=== PATIENT | male | born 1940 | race Caucasian/White ===

== ENCOUNTER 2018-04-24 10:49 | Inpatient (IN) | payer MEDICARE, OTHER ==
[2018-04-24 11:19] LABS: ADD MAN DIFF? NO
[2018-04-24 11:24] LABS: WHITE BLOOD COUNT 12.3 10^3/ul (4.8-10.8)
[2018-04-24 11:24] LABS: BASOPHIL # 0.1 10^3/ul (0.0-0.1); BASOPHILS % 0.5 % (0.0-2.0); EOSINOPHILS # 0.2 10^3/ul (0.0-0.5); EOSINOPHILS % 1.4 % (0.0-7.0); HEMATOCRIT 43.6 % (42.0-52.0); LYMPHOCYTES # 1.1 10^3/ul (0.8-2.9); LYMPHOCYTES % 9.2 % (15.0-51.0); MEAN CORPUSCULAR HEMOGLOBIN 30.7 pg (29.0-33.0); MEAN CORPUSCULAR HGB CONC 34.4 g/dl (32.0-37.0); MEAN CORPUSCULAR VOLUME 89.3 fl (82.0-101.0); MEAN PLATELET VOLUME 8.4 fl (7.4-10.4); MONOCYTE # 1.3 10^3/ul (0.3-0.9); MONOCYTES % 10.7 % (0.0-11.0); NEUTROPHIL # 9.6 10^3/ul (1.6-7.5); NEUTROPHILS % 77.6 % (39.0-77.0); PLATELET COUNT 402 10^3/UL (140-415); RED BLOOD COUNT 4.88 10^6/ul (4.70-6.10); RED CELL DISTRIBUTION WIDTH 12.1 % (11.5-14.5)
[2018-04-24 11:44] LABS: INR 0.99; PROTIME 13.2 Sec (11.9-14.9)
[2018-04-24 11:45] LABS: PARTIAL THROMBOPLASTIN TIME 29.2 Sec (23.0-35.0)
[2018-04-24 11:48] LABS: ANION GAP 13 (5-13); BLOOD UREA NITROGEN 25 mg/dl (7-20); CALCIUM 10.1 mg/dl (8.4-10.2); CARBON DIOXIDE 26 mmol/L (21-31); CHLORIDE 96 mmol/L (97-110); CHOL/HDL RATIO 5.2 RATIO; CHOLESTEROL 152 mg/dl (100-200); CREATININE 0.74 mg/dl (0.61-1.24); GLUCOSE 277 mg/dl (70-220); HDL CHOLESTEROL 29 mg/dl (31-75); LDL CHOLESTEROL,CALCULATED 105 mg/dl; POTASSIUM 4.4 mmol/L (3.5-5.1); SODIUM 135 mmol/L (135-144); TRIGLYCERIDES 88 mg/dl (0-149)
[2018-04-24 11:59] LABS: TROPONIN-I < 0.012 ng/ml (0.000-0.120)
[2018-04-24] MEDS ORDERED: ASPIRIN 325 MG TAB PO (12:30)
[2018-04-24 12:31] LABS: HEMOGLOBIN A1C 8.1 % (0-5.9)
[2018-04-24] MEDS: ASPIRIN 300 MG SUPP PR (12:47)
[2018-04-24] MEDS ORDERED: ACETAMINOPHEN 325 MG TAB PO (14:30)
[2018-04-24] MEDS ORDERED: ONDANSETRON 4 MG INJ IV ×2 (14:30→16:30)
[2018-04-24 14:32] LABS: ADD UMIC YES; UR ASCORBIC ACID NEGATIVE (NEGATIVE); UR BACTERIA MANY /HPF (NONE SEEN); UR BILIRUBIN (Dip) NEGATIVE (NEGATIVE); UR BLOOD (Dip) 2+ mg/dL (NEGATIVE); UR CLARITY CLOUDY (CLEAR); UR COLOR AMBER (YELLOW); UR GLUCOSE (Dip) 3+ mg/dL (NEGATIVE); UR KETONES (Dip) TRACE mg/dL (NEGATIVE); UR LEUKOCYTE ESTERASE (Dip) 3+ Leu/ul (NEGATIVE); UR MUCUS MANY /HPF (NONE SEEN); UR NITRITE (Dip) POSITIVE (NEGATIVE); UR RBC 14 /HPF (0-5); UR SPECIFIC GRAVITY (Dip) 1.024 (1.003-1.030); UR TOTAL PROTEIN (Dip) 2+ mg/dl (NEGATIVE); UR UROBILINOGEN (Dip) 1+ mg/dL (NEGATIVE); UR WBC > 182 /HPF (0-5)
[2018-04-24 15:02] LABS: AMPHETAMINE/METHAMPHETAMINE Negative (NEGATIVE); BARBITURATES Negative (NEGATIVE); CANNABINOIDS Negative (NEGATIVE); COCAINE Negative (NEGATIVE); OPIATES Negative (NEGATIVE)
[2018-04-24 15:03] LABS: BENZODIAZEPINES Negative (NEGATIVE)
[2018-04-24] MEDS ORDERED: DEXTROSE 50% 50 ML SYRINGE IV ×2 (17:00)
[2018-04-24] MEDS ORDERED: GLUCOSE GEL 15 GRAM TUBE BUCCAL (17:00)
[2018-04-24] MEDS ORDERED: GLUCAGON 1 MG INJ IM (17:00)
[2018-04-24] MEDS ORDERED: GLUCOSE GEL 15 GRAM TUBE PO ×2 (17:00)
[2018-04-24] MEDS: CEFTRIAXONE 1 GM/50 ML (PMX) 50 ML IVPB (17:33)
[2018-04-24] MEDS: D5W-0.45 NACL + KCL 20 MEQ 1,000 ML IV (17:33)
[2018-04-24] MEDS ORDERED: INSULIN ASPART [NOVOLOG] 3 ML PEN SC (18:00)
[2018-04-24] MEDS: Insulin NOVOLOG SS MILD Algorithm (NPO/TPN/ENTERAL FEEDS) SC ×2 (18:40→23:45)
[2018-04-24] MEDS: FAMOTIDINE 20 MG INJ IV (21:38)
[2018-04-24] MEDS: morphine 4 MG/ML VIAL IV (23:27)
[2018-04-25] MEDS ORDERED: ACCU-CHEK XX (02:00)
[2018-04-25] MEDS: Insulin NOVOLOG SS MILD Algorithm (NPO/TPN/ENTERAL FEEDS) SC ×3 (05:13→17:50)
[2018-04-25 06:00] LABS: ADD MAN DIFF? NO
[2018-04-25 06:05] LABS: WHITE BLOOD COUNT 11.8 10^3/ul (4.8-10.8)
[2018-04-25 06:05] LABS: BASOPHIL # 0.1 10^3/ul (0.0-0.1); BASOPHILS % 0.5 % (0.0-2.0); EOSINOPHILS # 0.3 10^3/ul (0.0-0.5); EOSINOPHILS % 2.2 % (0.0-7.0); HEMATOCRIT 39.8 % (42.0-52.0); HEMOGLOBIN 13.4 g/dl (14.0-18.0); LYMPHOCYTES # 0.9 10^3/ul (0.8-2.9); LYMPHOCYTES % 7.9 % (15.0-51.0); MEAN CORPUSCULAR HEMOGLOBIN 30.7 pg (29.0-33.0); MEAN CORPUSCULAR HGB CONC 33.7 g/dl (32.0-37.0); MEAN CORPUSCULAR VOLUME 91.1 fl (82.0-101.0); MEAN PLATELET VOLUME 8.7 fl (7.4-10.4); MONOCYTE # 1.4 10^3/ul (0.3-0.9); MONOCYTES % 11.7 % (0.0-11.0); NEUTROPHIL # 9.1 10^3/ul (1.6-7.5); PLATELET COUNT 377 10^3/UL (140-415); RED BLOOD COUNT 4.37 10^6/ul (4.70-6.10)
[2018-04-25 06:17] LABS: HEMOGLOBIN A1C 8.1 % (0-5.9)
[2018-04-25 06:26] LABS: ALANINE AMINOTRANSFERASE 23 IU/L (13-69); ALBUMIN 3.5 g/dl (3.3-4.9); ALBUMIN/GLOBULIN RATIO 0.97; ALKALINE PHOSPHATASE 63 IU/L (42-121); ANION GAP 15 (5-13); ASPARTATE AMINO TRANSFERASE 22 IU/L (15-46); BILIRUBIN,INDIRECT 0.5 mg/dl (0-1.1); BILIRUBIN,TOTAL 0.5 mg/dl (0.2-1.3); BLOOD UREA NITROGEN 20 mg/dl (7-20); CALCIUM 9.3 mg/dl (8.4-10.2); CARBON DIOXIDE 24 mmol/L (21-31); CHLORIDE 98 mmol/L (97-110); CREATININE 0.68 mg/dl (0.61-1.24); GLUCOSE 220 mg/dl (70-220); HDL CHOLESTEROL 25 mg/dl (31-75); MAGNESIUM 1.9 mg/dl (1.7-2.5); POTASSIUM 4.4 mmol/L (3.5-5.1); SODIUM 137 mmol/L (135-144); TOTAL PROTEIN 7.1 g/dl (6.1-8.1); TRIGLYCERIDES 91 mg/dl (0-149)
[2018-04-25 06:28] LABS: CHOL/HDL RATIO 5.3 RATIO; CHOLESTEROL 134 mg/dl (100-200); LDL CHOLESTEROL,CALCULATED 91 mg/dl
[2018-04-25] MEDS: D5W-0.45 NACL + KCL 20 MEQ 1,000 ML IV ×2 (06:50→20:40)
[2018-04-25] MEDS: morphine 4 MG/ML VIAL IV (06:59)
[2018-04-25] MEDS: FAMOTIDINE 20 MG INJ IV ×2 (08:30→20:44)
[2018-04-25] MEDS: CARBIDOPA/LEVODOPA (25/100) TAB PO ×3 (09:26→20:44)
[2018-04-25] MEDS: CEFTRIAXONE 1 GM/50 ML (PMX) 50 ML IVPB (16:38)
[2018-04-25] MEDS: ATORVASTATIN 40 MG TAB PO (20:44)
[2018-04-25] MEDS: INSULIN ASPART [NOVOLOG] 3 ML PEN SC (20:59)
[2018-04-26] MEDS: ACCU-CHEK XX (02:00)
[2018-04-26] MEDS: metFORMIN 500 MG TAB PO ×2 (07:47→17:22)
[2018-04-26] MEDS: INSULIN ASPART [NOVOLOG] 3 ML PEN SC ×5 (08:00→21:27)
[2018-04-26] MEDS: CARBIDOPA/LEVODOPA (25/100) TAB PO ×3 (08:00→21:09)
[2018-04-26] MEDS: morphine 4 MG/ML VIAL IV ×2 (08:00→16:19)
[2018-04-26] MEDS: FAMOTIDINE 20 MG INJ IV (08:00)
[2018-04-26] MEDS: D5W-0.45 NACL + KCL 20 MEQ 1,000 ML IV (11:03)
[2018-04-26] MEDS: CEFTRIAXONE 1 GM/50 ML (PMX) 50 ML IVPB (16:09)
[2018-04-26] MEDS: ATORVASTATIN 40 MG TAB PO (21:09)
[2018-04-26] MEDS: FAMOTIDINE 20 MG TAB PO (21:09)
[2018-04-26] MEDS: INSULIN GLARGINE [LANTus] (100 UNITS/ML) SYG SC (21:23)
[2018-04-27] MEDS: D5W-0.45 NACL + KCL 20 MEQ 1,000 ML IV ×2 (01:21→15:56)
[2018-04-27] MEDS: ACCU-CHEK XX (02:00)
[2018-04-27] MEDS: morphine 4 MG/ML VIAL IV ×3 (02:25→11:56)
[2018-04-27] MEDS: metFORMIN 500 MG TAB PO ×2 (07:53→17:30)
[2018-04-27] MEDS: FAMOTIDINE 20 MG TAB PO ×2 (07:53→20:05)
[2018-04-27] MEDS: CARBIDOPA/LEVODOPA (25/100) TAB PO ×3 (07:53→20:05)
[2018-04-27] MEDS: INSULIN ASPART [NOVOLOG] 3 ML PEN SC ×6 (08:13→20:23)
[2018-04-27] MEDS: DOCUSATE SODIUM 100 MG CAP PO ×2 (14:32→20:05)
[2018-04-27] MEDS: morphine LIQ (10 MG/5 ML) CUP PO ×2 (15:57→20:05)
[2018-04-27] MEDS: CEFTRIAXONE 1 GM/50 ML (PMX) 50 ML IVPB (17:21)
[2018-04-27] MEDS: ATORVASTATIN 40 MG TAB PO (20:05)
[2018-04-27] MEDS: INSULIN GLARGINE [LANTus] (100 UNITS/ML) SYG SC (20:23)
[2018-04-28] MEDS: ACCU-CHEK XX (02:00)
[2018-04-28] MEDS: morphine LIQ (10 MG/5 ML) CUP PO ×3 (03:27→15:42)
[2018-04-28] MEDS: D5W-0.45 NACL + KCL 20 MEQ 1,000 ML IV ×2 (05:52→21:17)
[2018-04-28] MEDS: DOCUSATE SODIUM 100 MG CAP PO ×2 (08:08→21:18)
[2018-04-28] MEDS: FAMOTIDINE 20 MG TAB PO ×2 (08:08→21:19)
[2018-04-28] MEDS: CARBIDOPA/LEVODOPA (25/100) TAB PO ×3 (08:08→21:18)
[2018-04-28] MEDS: metFORMIN 500 MG TAB PO ×2 (08:08→17:06)
[2018-04-28] MEDS: INSULIN ASPART [NOVOLOG] 3 ML PEN SC ×4 (08:18→21:30)
[2018-04-28] MEDS: morphine 4 MG/ML VIAL IV (12:00)
[2018-04-28 12:41] LABS: ADD MAN DIFF? NO
[2018-04-28 12:44] LABS: WHITE BLOOD COUNT 10.9 10^3/ul (4.8-10.8)
[2018-04-28 12:44] LABS: BASOPHIL # 0.1 10^3/ul (0.0-0.1); BASOPHILS % 0.6 % (0.0-2.0); EOSINOPHILS # 0.3 10^3/ul (0.0-0.5); EOSINOPHILS % 2.4 % (0.0-7.0); HEMATOCRIT 39.5 % (42.0-52.0); HEMOGLOBIN 13.4 g/dl (14.0-18.0); LYMPHOCYTES # 1.1 10^3/ul (0.8-2.9); LYMPHOCYTES % 9.8 % (15.0-51.0); MEAN CORPUSCULAR HEMOGLOBIN 30.5 pg (29.0-33.0); MEAN CORPUSCULAR HGB CONC 33.9 g/dl (32.0-37.0); MEAN PLATELET VOLUME 8.4 fl (7.4-10.4); MONOCYTE # 1.1 10^3/ul (0.3-0.9); MONOCYTES % 10.5 % (0.0-11.0); NEUTROPHIL # 8.3 10^3/ul (1.6-7.5); NEUTROPHILS % 76.2 % (39.0-77.0); PLATELET COUNT 435 10^3/UL (140-415); RED BLOOD COUNT 4.39 10^6/ul (4.70-6.10); RED CELL DISTRIBUTION WIDTH 11.9 % (11.5-14.5)
[2018-04-28 13:02] LABS: ANION GAP 14 (5-13); BLOOD UREA NITROGEN 14 mg/dl (7-20); CALCIUM 9.3 mg/dl (8.4-10.2); CARBON DIOXIDE 28 mmol/L (21-31); CHLORIDE 92 mmol/L (97-110); CREATININE 0.62 mg/dl (0.61-1.24); GLUCOSE 232 mg/dl (70-220); POTASSIUM 4.3 mmol/L (3.5-5.1); SODIUM 134 mmol/L (135-144)
[2018-04-28] MEDS: BISACODYL (EC) 5 MG TAB PO (15:34)
[2018-04-28] MEDS: CEFTRIAXONE 1 GM/50 ML (PMX) 50 ML IVPB (17:04)
[2018-04-28] MEDS: ATORVASTATIN 40 MG TAB PO (21:18)
[2018-04-28] MEDS: INSULIN GLARGINE [LANTus] (100 UNITS/ML) SYG SC (21:31)
[2018-04-29] MEDS: ACCU-CHEK XX (01:51)
[2018-04-29] MEDS: metFORMIN 500 MG TAB PO ×2 (07:51→17:47)
[2018-04-29] MEDS: INSULIN ASPART [NOVOLOG] 3 ML PEN SC ×4 (07:57→20:30)
[2018-04-29] MEDS: FAMOTIDINE 20 MG TAB PO ×2 (08:47→20:15)
[2018-04-29] MEDS: DOCUSATE SODIUM 100 MG CAP PO ×2 (08:47→20:15)
[2018-04-29] MEDS: BISACODYL (EC) 5 MG TAB PO (08:47)
[2018-04-29] MEDS: CARBIDOPA/LEVODOPA (25/100) TAB PO ×3 (08:47→20:15)
[2018-04-29] MEDS: D5W-0.45 NACL + KCL 20 MEQ 1,000 ML IV (10:58)
[2018-04-29] MEDS: CEFTRIAXONE 1 GM/50 ML (PMX) 50 ML IVPB (17:47)
[2018-04-29] MEDS: ATORVASTATIN 40 MG TAB PO (20:15)
[2018-04-29] MEDS: INSULIN GLARGINE [LANTus] (100 UNITS/ML) SYG SC (20:30)
[2018-04-30] MEDS: D5W-0.45 NACL + KCL 20 MEQ 1,000 ML IV ×2 (00:46→16:16)
[2018-04-30] MEDS: ACCU-CHEK XX (02:00)
[2018-04-30 06:15] LABS: ADD MAN DIFF? NO
[2018-04-30 06:19] LABS: BASOPHIL # 0.1 10^3/ul (0.0-0.1); BASOPHILS % 0.5 % (0.0-2.0); EOSINOPHILS # 0.4 10^3/ul (0.0-0.5); EOSINOPHILS % 4.1 % (0.0-7.0); HEMATOCRIT 39.1 % (42.0-52.0); HEMOGLOBIN 13.1 g/dl (14.0-18.0); LYMPHOCYTES # 1.5 10^3/ul (0.8-2.9); LYMPHOCYTES % 14.5 % (15.0-51.0); MEAN CORPUSCULAR HEMOGLOBIN 30.3 pg (29.0-33.0); MEAN CORPUSCULAR HGB CONC 33.5 g/dl (32.0-37.0); MEAN CORPUSCULAR VOLUME 90.5 fl (82.0-101.0); MEAN PLATELET VOLUME 8.6 fl (7.4-10.4); MONOCYTE # 1.1 10^3/ul (0.3-0.9); MONOCYTES % 10.8 % (0.0-11.0); NEUTROPHILS % 69.3 % (39.0-77.0); PLATELET COUNT 407 10^3/UL (140-415); RED BLOOD COUNT 4.32 10^6/ul (4.70-6.10)
[2018-04-30 06:36] LABS: ANION GAP 13 (5-13); BLOOD UREA NITROGEN 14 mg/dl (7-20); CALCIUM 9.2 mg/dl (8.4-10.2); CARBON DIOXIDE 28 mmol/L (21-31); CHLORIDE 95 mmol/L (97-110); CREATININE 0.56 mg/dl (0.61-1.24); GLUCOSE 177 mg/dl (70-220); POTASSIUM 4.2 mmol/L (3.5-5.1); SODIUM 136 mmol/L (135-144)
[2018-04-30] MEDS: INSULIN ASPART [NOVOLOG] 3 ML PEN SC ×4 (08:05→20:26)
[2018-04-30] MEDS: DOCUSATE SODIUM 100 MG CAP PO ×2 (08:51→20:25)
[2018-04-30] MEDS: FAMOTIDINE 20 MG TAB PO ×2 (08:51→20:25)
[2018-04-30] MEDS: metFORMIN 500 MG TAB PO ×2 (08:51→17:28)
[2018-04-30] MEDS: ASPIRIN (EC) 81 MG TAB PO (08:51)
[2018-04-30] MEDS: LINAGLIPTIN 5 MG TABLET PO (08:52)
[2018-04-30] MEDS: BISACODYL (EC) 5 MG TAB PO (08:52)
[2018-04-30] MEDS: CARBIDOPA/LEVODOPA (25/100) TAB PO ×3 (08:52→20:25)
[2018-04-30] MEDS: morphine LIQ (10 MG/5 ML) CUP PO ×2 (09:30→21:43)
[2018-04-30] MEDS: CEFTRIAXONE 1 GM/50 ML (PMX) 50 ML IVPB (16:16)
[2018-04-30] MEDS: ATORVASTATIN 40 MG TAB PO (20:25)
[2018-04-30] MEDS: INSULIN GLARGINE [LANTus] (100 UNITS/ML) SYG SC (20:34)
[2018-05-01] MEDS: ACCU-CHEK XX (02:00)
[2018-05-01] MEDS: D5W-0.45 NACL + KCL 20 MEQ 1,000 ML IV ×2 (05:35→17:23)
[2018-05-01] MEDS: INSULIN ASPART [NOVOLOG] 3 ML PEN SC ×4 (08:13→21:00)
[2018-05-01] MEDS: metFORMIN 500 MG TAB PO ×2 (08:45→17:22)
[2018-05-01] MEDS: LINAGLIPTIN 5 MG TABLET PO (08:46)
[2018-05-01] MEDS: DOCUSATE SODIUM 100 MG CAP PO ×2 (08:46→21:07)
[2018-05-01] MEDS: BISACODYL (EC) 5 MG TAB PO (08:46)
[2018-05-01] MEDS: CARBIDOPA/LEVODOPA (25/100) TAB PO ×3 (08:46→21:08)
[2018-05-01] MEDS: ASPIRIN (EC) 81 MG TAB PO (08:46)
[2018-05-01] MEDS: FAMOTIDINE 20 MG TAB PO ×2 (08:46→21:07)
[2018-05-01] MEDS: morphine LIQ (10 MG/5 ML) CUP PO (14:21)
[2018-05-01] MEDS: ATORVASTATIN 40 MG TAB PO (21:08)
[2018-05-01] MEDS: INSULIN GLARGINE [LANTus] (100 UNITS/ML) SYG SC (21:13)
[2018-05-02] MEDS: ACCU-CHEK XX (02:00)
[2018-05-02] MEDS: BISACODYL (EC) 5 MG TAB PO (08:20)
[2018-05-02] MEDS: metFORMIN 500 MG TAB PO ×2 (08:20→19:09)
[2018-05-02] MEDS: LINAGLIPTIN 5 MG TABLET PO (08:20)
[2018-05-02] MEDS: FAMOTIDINE 20 MG TAB PO ×2 (08:21→20:12)
[2018-05-02] MEDS: CARBIDOPA/LEVODOPA (25/100) TAB PO ×3 (08:21→20:12)
[2018-05-02] MEDS: DOCUSATE SODIUM 100 MG CAP PO ×2 (08:21→20:11)
[2018-05-02] MEDS: ASPIRIN (EC) 81 MG TAB PO (08:21)
[2018-05-02] MEDS: INSULIN ASPART [NOVOLOG] 3 ML PEN SC ×3 (08:32→19:17)
[2018-05-02] MEDS: D5W-0.45 NACL + KCL 20 MEQ 1,000 ML IV (09:58)
[2018-05-02] MEDS: morphine LIQ (10 MG/5 ML) CUP PO (19:56)
[2018-05-02] MEDS: ATORVASTATIN 40 MG TAB PO (20:12)
[2018-05-02] MEDS: INSULIN GLARGINE [LANTus] (100 UNITS/ML) SYG SC (21:42)
== END 2018-05-02 20:52 | DRG 65 ==
LOC: E/R 10:49 → 6WM 14:08
DX: I63.9 Cerebral infarction, unspecified (principal); G81.91 Hemiplegia, unspecified affecting right dominant side; N39.0 Urinary tract infection, site not specified; E11.9 Type 2 diabetes mellitus without complications; G20 Parkinson's disease; Z79.4 Long term (current) use of insulin
CPT/HCPCS: 36415; 70450; 70551; 71045; 73030-RT; 80048; 80053; 80061; 80307; 81001; 82962; 83036; 83735; 84484; 85025; 85610; 85730; 87040; 87086; 92526; 92610; 93005; 93306; 93880; 97110; 97163; 97165; 97530; 97535; 99291-25

== ENCOUNTER 2018-05-02 21:02 | Inpatient (IN) | payer MEDICARE, OTHER ==
[2018-05-02] MEDS: FAMOTIDINE 20 MG TAB PO (22:30)
[2018-05-02] MEDS: CARBIDOPA/LEVODOPA (25/100) TAB PO (22:30)
[2018-05-02] MEDS: ATORVASTATIN 40 MG TAB PO (22:30)
[2018-05-02] MEDS: DOCUSATE SODIUM 100 MG CAP PO (22:30)
[2018-05-02] MEDS: Insulin NOVOLOG SS MODERATE Algorithm (SS with meals and bedtime) SC (22:30)
[2018-05-02] MEDS ORDERED: GLUCOSE GEL 15 GRAM TUBE PO ×2 (23:00)
[2018-05-02] MEDS ORDERED: GLUCOSE GEL 15 GRAM TUBE BUCCAL (23:00)
[2018-05-02] MEDS ORDERED: GLUCAGON 1 MG INJ IM (23:00)
[2018-05-02] MEDS: INSULIN GLARGINE [LANTus] (100 UNITS/ML) SYG SC (23:00)
[2018-05-02] MEDS ORDERED: ONDANSETRON 4 MG INJ IV (23:00)
[2018-05-02] MEDS ORDERED: DEXTROSE 50% 50 ML SYRINGE IV ×2 (23:00)
[2018-05-03] MEDS ORDERED: PENDING SANTYL ORDER FOR WOUND CARE XX
[2018-05-03] MEDS ORDERED: BISACODYL 10 MG SUPP PR
[2018-05-03 00:02] LABS: ADD UMIC YES; UR ASCORBIC ACID NEGATIVE (NEGATIVE); UR BILIRUBIN (Dip) NEGATIVE (NEGATIVE); UR BLOOD (Dip) 1+ mg/dL (NEGATIVE); UR CLARITY CLEAR (CLEAR); UR COLOR YELLOW (YELLOW); UR GLUCOSE (Dip) NEGATIVE (NEGATIVE); UR KETONES (Dip) NEGATIVE (NEGATIVE); UR LEUKOCYTE ESTERASE (Dip) NEGATIVE Leu/ul (NEGATIVE); UR MUCUS FEW /HPF (NONE SEEN); UR NITRITE (Dip) NEGATIVE (NEGATIVE); UR RBC 2 /HPF (0-5); UR TOTAL PROTEIN (Dip) NEGATIVE (NEGATIVE); UR UROBILINOGEN (Dip) NEGATIVE (NEGATIVE); UR WBC 4 /HPF (0-5)
[2018-05-03] MEDS: ACCUCHECK AT 2AM (Patients on SS coverage) XX (02:00)
[2018-05-03] MEDS: MAGNESIUM HYDROXIDE 30ML CUP PO ×2 (05:48→20:48)
[2018-05-03 06:05] LABS: ADD MAN DIFF? NO
[2018-05-03 06:13] LABS: BASOPHIL # 0.1 10^3/ul (0.0-0.1); BASOPHILS % 0.8 % (0.0-2.0); EOSINOPHILS # 0.3 10^3/ul (0.0-0.5); EOSINOPHILS % 3.2 % (0.0-7.0); HEMATOCRIT 41.6 % (42.0-52.0); HEMOGLOBIN 13.6 g/dl (14.0-18.0); LYMPHOCYTES % 20.2 % (15.0-51.0); MEAN CORPUSCULAR HGB CONC 32.7 g/dl (32.0-37.0); MEAN CORPUSCULAR VOLUME 91.8 fl (82.0-101.0); MEAN PLATELET VOLUME 8.6 fl (7.4-10.4); MONOCYTE # 1.3 10^3/ul (0.3-0.9); NEUTROPHIL # 6.2 10^3/ul (1.6-7.5); NEUTROPHILS % 62.1 % (39.0-77.0); PLATELET COUNT 413 10^3/UL (140-415); RED BLOOD COUNT 4.53 10^6/ul (4.70-6.10); RED CELL DISTRIBUTION WIDTH 12.1 % (11.5-14.5)
[2018-05-03 06:46] LABS: ANION GAP 12 (5-13); BLOOD UREA NITROGEN 16 mg/dl (7-20); CALCIUM 9.8 mg/dl (8.4-10.2); CARBON DIOXIDE 29 mmol/L (21-31); CHLORIDE 99 mmol/L (97-110); CREATININE 0.67 mg/dl (0.61-1.24); GLUCOSE 76 mg/dl (70-220); POTASSIUM 3.9 mmol/L (3.5-5.1); SODIUM 140 mmol/L (135-144)
[2018-05-03] MEDS: Insulin NOVOLOG SS MODERATE Algorithm (SS with meals and bedtime) SC ×4 (07:35→21:00)
[2018-05-03] MEDS ORDERED: LINAGLIPTIN 5 MG TABLET (07:56)
[2018-05-03] MEDS: metFORMIN 500 MG TAB PO ×2 (08:23→17:36)
[2018-05-03] MEDS: LINAGLIPTIN 5 MG TABLET PO (08:23)
[2018-05-03] MEDS ORDERED: DOCUSATE SODIUM 100 MG CAP PO (09:00)
[2018-05-03] MEDS: LACTULOSE 30ML CUP PO (09:24)
[2018-05-03] MEDS: FAMOTIDINE 20 MG TAB PO ×2 (09:24→20:44)
[2018-05-03] MEDS: CARBIDOPA/LEVODOPA (25/100) TAB PO ×3 (09:24→20:44)
[2018-05-03] MEDS: BISACODYL (EC) 5 MG TAB PO (09:24)
[2018-05-03] MEDS: DOCUSATE SODIUM 100 MG CAP PO ×2 (09:24→20:44)
[2018-05-03] MEDS: ASPIRIN (EC) 81 MG TAB PO (09:24)
[2018-05-03] MEDS: morphine LIQ (10 MG/5 ML) CUP PO ×2 (11:17→20:43)
[2018-05-03] MEDS: ATORVASTATIN 40 MG TAB PO (20:43)
[2018-05-03] MEDS: SENNA TAB PO (20:44)
[2018-05-03] MEDS: INSULIN GLARGINE [LANTus] (100 UNITS/ML) SYG SC (20:49)
[2018-05-03] MEDS: ACETAMINOPHEN 325 MG TAB PO (22:09)
[2018-05-04] MEDS: ACCUCHECK AT 2AM (Patients on SS coverage) XX (02:00)
[2018-05-04] MEDS: Insulin NOVOLOG SS MODERATE Algorithm (SS with meals and bedtime) SC ×4 (07:35→20:09)
[2018-05-04] MEDS: LINAGLIPTIN 5 MG TABLET PO (07:51)
[2018-05-04] MEDS: metFORMIN 500 MG TAB PO ×2 (07:51→17:39)
[2018-05-04] MEDS: CARBIDOPA/LEVODOPA (25/100) TAB PO ×3 (08:39→20:09)
[2018-05-04] MEDS: FAMOTIDINE 20 MG TAB PO ×2 (08:39→20:01)
[2018-05-04] MEDS: BISACODYL (EC) 5 MG TAB PO (08:39)
[2018-05-04] MEDS: ASPIRIN (EC) 81 MG TAB PO (08:39)
[2018-05-04] MEDS: DOCUSATE SODIUM 100 MG CAP PO ×2 (08:39→20:01)
[2018-05-04] MEDS: LACTULOSE 30ML CUP PO (08:40)
[2018-05-04] MEDS: ACETAMINOPHEN 325 MG TAB PO ×2 (08:40→20:00)
[2018-05-04] MEDS ORDERED: NA PHOSPHATE/BIPHOS 133 ML ENEMA PR (10:30)
[2018-05-04] MEDS: POLYETHYLENE GLYCOL 17 GM PACKET PO (12:31)
[2018-05-04] MEDS: morphine LIQ (10 MG/5 ML) CUP PO ×2 (17:40→21:56)
[2018-05-04] MEDS: INSULIN GLARGINE [LANTus] (100 UNITS/ML) SYG SC (19:58)
[2018-05-04] MEDS: SENNA TAB PO (20:00)
[2018-05-04] MEDS: ATORVASTATIN 40 MG TAB PO (20:02)
[2018-05-05] MEDS: ACETAMINOPHEN 325 MG TAB PO ×2 (00:08→20:53)
[2018-05-05] MEDS: ACCUCHECK AT 2AM (Patients on SS coverage) XX (02:00)
[2018-05-05] MEDS: morphine LIQ (10 MG/5 ML) CUP PO ×2 (05:36→18:51)
[2018-05-05] MEDS: Insulin NOVOLOG SS MODERATE Algorithm (SS with meals and bedtime) SC ×4 (08:20→20:56)
[2018-05-05] MEDS: BISACODYL (EC) 5 MG TAB PO (08:56)
[2018-05-05] MEDS: LINAGLIPTIN 5 MG TABLET PO (08:56)
[2018-05-05] MEDS: CARBIDOPA/LEVODOPA (25/100) TAB PO ×3 (08:56→20:52)
[2018-05-05] MEDS: FAMOTIDINE 20 MG TAB PO ×2 (08:57→20:52)
[2018-05-05] MEDS: ASPIRIN (EC) 81 MG TAB PO (08:57)
[2018-05-05] MEDS: metFORMIN 500 MG TAB PO ×2 (08:57→17:59)
[2018-05-05] MEDS: DOCUSATE SODIUM 100 MG CAP PO ×2 (08:57→20:52)
[2018-05-05] MEDS: BISACODYL 10 MG SUPP PR (17:58)
[2018-05-05] MEDS: ATORVASTATIN 40 MG TAB PO (20:52)
[2018-05-05] MEDS: SENNA TAB PO (20:53)
[2018-05-05] MEDS: INSULIN GLARGINE [LANTus] (100 UNITS/ML) SYG SC (20:58)
[2018-05-06] MEDS: ACCUCHECK AT 2AM (Patients on SS coverage) XX (02:00)
[2018-05-06] MEDS: morphine LIQ (10 MG/5 ML) CUP PO (06:42)
[2018-05-06] MEDS: Insulin NOVOLOG SS MODERATE Algorithm (SS with meals and bedtime) SC ×4 (07:35→21:00)
[2018-05-06] MEDS: metFORMIN 500 MG TAB PO ×2 (07:45→17:47)
[2018-05-06] MEDS: LINAGLIPTIN 5 MG TABLET PO (07:45)
[2018-05-06] MEDS: FAMOTIDINE 20 MG TAB PO ×2 (08:32→21:06)
[2018-05-06] MEDS: BISACODYL (EC) 5 MG TAB PO (08:32)
[2018-05-06] MEDS: DOCUSATE SODIUM 100 MG CAP PO ×2 (08:32→21:00)
[2018-05-06] MEDS: CARBIDOPA/LEVODOPA (25/100) TAB PO ×3 (08:32→21:06)
[2018-05-06] MEDS: ACETAMINOPHEN 325 MG TAB PO ×2 (08:32→21:06)
[2018-05-06] MEDS: ASPIRIN (EC) 81 MG TAB PO (08:32)
[2018-05-06] MEDS ORDERED: morphine LIQ (10 MG/5 ML) CUP PO (12:00)
[2018-05-06] MEDS: SENNA TAB PO (21:00)
[2018-05-06] MEDS: ATORVASTATIN 40 MG TAB PO (21:06)
[2018-05-06] MEDS: INSULIN GLARGINE [LANTus] (100 UNITS/ML) SYG SC (21:11)
[2018-05-07] MEDS: ACCUCHECK AT 2AM (Patients on SS coverage) XX (02:00)
[2018-05-07] MEDS: Insulin NOVOLOG SS MODERATE Algorithm (SS with meals and bedtime) SC ×4 (07:35→20:39)
[2018-05-07] MEDS: LINAGLIPTIN 5 MG TABLET PO (08:08)
[2018-05-07] MEDS: metFORMIN 500 MG TAB PO ×2 (08:08→18:08)
[2018-05-07] MEDS: DOCUSATE SODIUM 100 MG CAP PO ×3 (09:00→20:44)
[2018-05-07] MEDS: BISACODYL (EC) 5 MG TAB PO (09:00)
[2018-05-07] MEDS: FAMOTIDINE 20 MG TAB PO ×2 (09:45→20:30)
[2018-05-07] MEDS: ASPIRIN (EC) 81 MG TAB PO (09:46)
[2018-05-07] MEDS: CARBIDOPA/LEVODOPA (25/100) TAB PO ×3 (09:46→20:30)
[2018-05-07] MEDS: ACETAMINOPHEN 325 MG TAB PO (09:46)
[2018-05-07] MEDS: ATORVASTATIN 40 MG TAB PO (20:30)
[2018-05-07] MEDS: SENNA TAB PO ×2 (20:30→20:44)
[2018-05-07] MEDS: CELECOXIB 100 MG CAP PO (20:30)
[2018-05-07] MEDS: INSULIN GLARGINE [LANTus] (100 UNITS/ML) SYG SC (21:39)
[2018-05-08] MEDS: ACCUCHECK AT 2AM (Patients on SS coverage) XX (02:37)
[2018-05-08] MEDS: Insulin NOVOLOG SS MODERATE Algorithm (SS with meals and bedtime) SC ×4 (07:35→20:58)
[2018-05-08] MEDS: metFORMIN 500 MG TAB PO ×2 (08:18→17:36)
[2018-05-08] MEDS: LINAGLIPTIN 5 MG TABLET PO (08:19)
[2018-05-08] MEDS: FAMOTIDINE 20 MG TAB PO ×2 (09:00→20:42)
[2018-05-08] MEDS: CARBIDOPA/LEVODOPA (25/100) TAB PO ×3 (09:00→20:42)
[2018-05-08] MEDS: ASPIRIN (EC) 81 MG TAB PO (09:00)
[2018-05-08] MEDS: DOCUSATE SODIUM 100 MG CAP PO ×2 (09:00→20:57)
[2018-05-08] MEDS: CELECOXIB 100 MG CAP PO (09:00)
[2018-05-08] MEDS: BISACODYL (EC) 5 MG TAB PO (09:00)
[2018-05-08] MEDS: ATORVASTATIN 40 MG TAB PO (20:42)
[2018-05-08] MEDS: INSULIN GLARGINE [LANTus] (100 UNITS/ML) SYG SC (20:51)
[2018-05-08] MEDS: SENNA TAB PO (20:58)
[2018-05-09] MEDS: ACCUCHECK AT 2AM (Patients on SS coverage) XX (02:00)
[2018-05-09] MEDS: Insulin NOVOLOG SS MODERATE Algorithm (SS with meals and bedtime) SC ×4 (07:35→20:28)
[2018-05-09] MEDS: metFORMIN 500 MG TAB PO ×2 (08:01→17:35)
[2018-05-09] MEDS: BISACODYL (EC) 5 MG TAB PO (08:43)
[2018-05-09] MEDS: DOCUSATE SODIUM 100 MG CAP PO ×2 (08:43→20:22)
[2018-05-09] MEDS: FAMOTIDINE 20 MG TAB PO ×2 (08:44→20:22)
[2018-05-09] MEDS: CARBIDOPA/LEVODOPA (25/100) TAB PO ×3 (08:44→20:22)
[2018-05-09] MEDS: LINAGLIPTIN 5 MG TABLET PO (08:44)
[2018-05-09] MEDS: ASPIRIN (EC) 81 MG TAB PO (08:44)
[2018-05-09] MEDS: ATORVASTATIN 40 MG TAB PO (20:22)
[2018-05-09] MEDS: INSULIN GLARGINE [LANTus] (100 UNITS/ML) SYG SC (20:27)
[2018-05-09] MEDS: SENNA TAB PO (20:28)
[2018-05-10] MEDS: ACCUCHECK AT 2AM (Patients on SS coverage) XX (02:00)
[2018-05-10] MEDS: Insulin NOVOLOG SS MODERATE Algorithm (SS with meals and bedtime) SC ×4 (07:35→21:00)
[2018-05-10] MEDS: metFORMIN 500 MG TAB PO ×2 (07:49→18:25)
[2018-05-10] MEDS: FAMOTIDINE 20 MG TAB PO ×2 (09:16→21:49)
[2018-05-10] MEDS: ASPIRIN (EC) 81 MG TAB PO (09:16)
[2018-05-10] MEDS: BISACODYL (EC) 5 MG TAB PO (09:16)
[2018-05-10] MEDS: CARBIDOPA/LEVODOPA (25/100) TAB PO ×3 (09:17→21:49)
[2018-05-10] MEDS: DOCUSATE SODIUM 100 MG CAP PO ×2 (09:17→21:00)
[2018-05-10] MEDS: LINAGLIPTIN 5 MG TABLET PO (09:17)
[2018-05-10] MEDS: CELECOXIB 100 MG CAP PO (13:49)
[2018-05-10] MEDS: SENNA TAB PO (21:00)
[2018-05-10] MEDS: ATORVASTATIN 40 MG TAB PO (21:47)
[2018-05-10] MEDS: INSULIN GLARGINE [LANTus] (100 UNITS/ML) SYG SC (21:55)
[2018-05-11] MEDS: ACCUCHECK AT 2AM (Patients on SS coverage) XX (02:00)
[2018-05-11] MEDS: Insulin NOVOLOG SS MODERATE Algorithm (SS with meals and bedtime) SC ×4 (07:35→20:41)
[2018-05-11] MEDS: ASPIRIN (EC) 81 MG TAB PO (08:16)
[2018-05-11] MEDS: CARBIDOPA/LEVODOPA (25/100) TAB PO ×3 (08:16→20:38)
[2018-05-11] MEDS: LINAGLIPTIN 5 MG TABLET PO (08:16)
[2018-05-11] MEDS: BISACODYL (EC) 5 MG TAB PO ×2 (08:16→08:42)
[2018-05-11] MEDS: metFORMIN 500 MG TAB PO ×2 (08:16→17:37)
[2018-05-11] MEDS: DOCUSATE SODIUM 100 MG CAP PO ×3 (08:16→20:38)
[2018-05-11] MEDS: FAMOTIDINE 20 MG TAB PO ×2 (08:16→20:38)
[2018-05-11] MEDS: SENNA TAB PO (20:38)
[2018-05-11] MEDS: ATORVASTATIN 40 MG TAB PO (20:38)
[2018-05-11] MEDS: INSULIN GLARGINE [LANTus] (100 UNITS/ML) SYG SC (20:41)
[2018-05-12] MEDS: ACCUCHECK AT 2AM (Patients on SS coverage) XX (02:00)
[2018-05-12] MEDS: Insulin NOVOLOG SS MODERATE Algorithm (SS with meals and bedtime) SC ×4 (07:35→20:41)
[2018-05-12] MEDS: LINAGLIPTIN 5 MG TABLET PO (07:53)
[2018-05-12] MEDS: metFORMIN 500 MG TAB PO ×2 (07:53→17:31)
[2018-05-12] MEDS: ASPIRIN (EC) 81 MG TAB PO (09:21)
[2018-05-12] MEDS: FAMOTIDINE 20 MG TAB PO ×2 (09:21→20:42)
[2018-05-12] MEDS: BISACODYL (EC) 5 MG TAB PO (09:21)
[2018-05-12] MEDS: CARBIDOPA/LEVODOPA (25/100) TAB PO ×3 (09:21→20:46)
[2018-05-12] MEDS: DOCUSATE SODIUM 100 MG CAP PO ×2 (09:21→20:42)
[2018-05-12] MEDS: INSULIN GLARGINE [LANTus] (100 UNITS/ML) SYG SC (20:40)
[2018-05-12] MEDS: ATORVASTATIN 40 MG TAB PO (20:42)
[2018-05-12] MEDS: SENNA TAB PO (20:42)
[2018-05-13] MEDS: ACCUCHECK AT 2AM (Patients on SS coverage) XX (02:00)
[2018-05-13] MEDS: Insulin NOVOLOG SS MODERATE Algorithm (SS with meals and bedtime) SC ×4 (07:35→21:00)
[2018-05-13] MEDS: LINAGLIPTIN 5 MG TABLET PO (08:05)
[2018-05-13] MEDS: metFORMIN 500 MG TAB PO ×2 (08:05→17:41)
[2018-05-13] MEDS: CELECOXIB 100 MG CAP PO (08:57)
[2018-05-13] MEDS: CARBIDOPA/LEVODOPA (25/100) TAB PO ×3 (08:58→20:47)
[2018-05-13] MEDS: BISACODYL (EC) 5 MG TAB PO (08:58)
[2018-05-13] MEDS: ASPIRIN (EC) 81 MG TAB PO (08:58)
[2018-05-13] MEDS: DOCUSATE SODIUM 100 MG CAP PO ×2 (08:58→20:47)
[2018-05-13] MEDS: FAMOTIDINE 20 MG TAB PO ×2 (08:58→20:47)
[2018-05-13] MEDS: ATORVASTATIN 40 MG TAB PO (20:47)
[2018-05-13] MEDS: SENNA TAB PO (21:00)
[2018-05-13] MEDS: INSULIN GLARGINE [LANTus] (100 UNITS/ML) SYG SC (21:05)
[2018-05-14] MEDS: ACCUCHECK AT 2AM (Patients on SS coverage) XX (02:00)
[2018-05-14] MEDS: Insulin NOVOLOG SS MODERATE Algorithm (SS with meals and bedtime) SC ×4 (07:35→20:29)
[2018-05-14] MEDS: metFORMIN 500 MG TAB PO ×2 (08:08→17:50)
[2018-05-14] MEDS: CARBIDOPA/LEVODOPA (25/100) TAB PO ×3 (08:08→20:12)
[2018-05-14] MEDS: ASPIRIN (EC) 81 MG TAB PO (08:09)
[2018-05-14] MEDS: BISACODYL (EC) 5 MG TAB PO (08:10)
[2018-05-14] MEDS: DOCUSATE SODIUM 100 MG CAP PO ×2 (08:10→20:29)
[2018-05-14] MEDS: LINAGLIPTIN 5 MG TABLET PO (08:10)
[2018-05-14] MEDS: FAMOTIDINE 20 MG TAB PO ×2 (08:12→20:12)
[2018-05-14] MEDS: ATORVASTATIN 40 MG TAB PO (20:12)
[2018-05-14] MEDS: INSULIN GLARGINE [LANTus] (100 UNITS/ML) SYG SC (20:22)
[2018-05-14] MEDS: SENNA TAB PO (20:29)
[2018-05-15] MEDS: ACCUCHECK AT 2AM (Patients on SS coverage) XX (02:00)
[2018-05-15] MEDS: Insulin NOVOLOG SS MODERATE Algorithm (SS with meals and bedtime) SC ×4 (07:35→20:30)
[2018-05-15] MEDS: FAMOTIDINE 20 MG TAB PO ×2 (08:14→20:25)
[2018-05-15] MEDS: ASPIRIN (EC) 81 MG TAB PO (08:14)
[2018-05-15] MEDS: LINAGLIPTIN 5 MG TABLET PO (08:14)
[2018-05-15] MEDS: metFORMIN 500 MG TAB PO ×2 (08:15→17:36)
[2018-05-15] MEDS: CARBIDOPA/LEVODOPA (25/100) TAB PO ×3 (08:15→20:25)
[2018-05-15] MEDS: BISACODYL (EC) 5 MG TAB PO (08:22)
[2018-05-15] MEDS: DOCUSATE SODIUM 100 MG CAP PO ×2 (08:22→20:24)
[2018-05-15] MEDS: CELECOXIB 100 MG CAP PO (12:14)
[2018-05-15] MEDS: SENNA TAB PO (20:25)
[2018-05-15] MEDS: ATORVASTATIN 40 MG TAB PO (20:25)
[2018-05-15] MEDS: INSULIN GLARGINE [LANTus] (100 UNITS/ML) SYG SC (20:29)
[2018-05-16] MEDS: ACCUCHECK AT 2AM (Patients on SS coverage) XX (02:00)
[2018-05-16] MEDS: Insulin NOVOLOG SS MODERATE Algorithm (SS with meals and bedtime) SC ×4 (07:35→21:00)
[2018-05-16] MEDS: metFORMIN 500 MG TAB PO ×2 (08:10→17:32)
[2018-05-16] MEDS: CARBIDOPA/LEVODOPA (25/100) TAB PO ×3 (08:34→20:57)
[2018-05-16] MEDS: FAMOTIDINE 20 MG TAB PO ×2 (08:34→20:57)
[2018-05-16] MEDS: DOCUSATE SODIUM 100 MG CAP PO ×2 (08:34→20:57)
[2018-05-16] MEDS: ASPIRIN (EC) 81 MG TAB PO (08:34)
[2018-05-16] MEDS: BISACODYL (EC) 5 MG TAB PO (08:35)
[2018-05-16] MEDS: LINAGLIPTIN 5 MG TABLET PO (08:35)
[2018-05-16] MEDS: ATORVASTATIN 40 MG TAB PO (20:57)
[2018-05-16] MEDS: SENNA TAB PO (20:57)
[2018-05-16] MEDS: INSULIN GLARGINE [LANTus] (100 UNITS/ML) SYG SC (21:03)
[2018-05-17] MEDS: ACCUCHECK AT 2AM (Patients on SS coverage) XX (02:00)
[2018-05-17] MEDS: Insulin NOVOLOG SS MODERATE Algorithm (SS with meals and bedtime) SC ×4 (07:35→20:34)
[2018-05-17] MEDS: metFORMIN 500 MG TAB PO ×2 (07:41→17:33)
[2018-05-17] MEDS: CARBIDOPA/LEVODOPA (25/100) TAB PO ×3 (08:48→20:31)
[2018-05-17] MEDS: FAMOTIDINE 20 MG TAB PO ×2 (08:48→20:31)
[2018-05-17] MEDS: DOCUSATE SODIUM 100 MG CAP PO ×2 (08:48→20:31)
[2018-05-17] MEDS: LINAGLIPTIN 5 MG TABLET PO (08:49)
[2018-05-17] MEDS: ASPIRIN (EC) 81 MG TAB PO (08:49)
[2018-05-17] MEDS: BISACODYL (EC) 5 MG TAB PO (08:49)
[2018-05-17] MEDS: ATORVASTATIN 40 MG TAB PO (20:31)
[2018-05-17] MEDS: SENNA TAB PO (20:31)
[2018-05-17] MEDS: INSULIN GLARGINE [LANTus] (100 UNITS/ML) SYG SC (21:11)
[2018-05-18] MEDS: ACCUCHECK AT 2AM (Patients on SS coverage) XX (02:00)
[2018-05-18] MEDS: Insulin NOVOLOG SS MODERATE Algorithm (SS with meals and bedtime) SC ×4 (07:35→20:32)
[2018-05-18] MEDS: metFORMIN 500 MG TAB PO (07:35)
[2018-05-18] MEDS: FAMOTIDINE 20 MG TAB PO ×2 (09:32→20:30)
[2018-05-18] MEDS: DOCUSATE SODIUM 100 MG CAP PO ×2 (09:32→20:30)
[2018-05-18] MEDS: BISACODYL (EC) 5 MG TAB PO (09:32)
[2018-05-18] MEDS: ASPIRIN (EC) 81 MG TAB PO (09:33)
[2018-05-18] MEDS: CARBIDOPA/LEVODOPA (25/100) TAB PO ×3 (09:33→20:30)
[2018-05-18] MEDS: LINAGLIPTIN 5 MG TABLET PO (09:35)
[2018-05-18] MEDS: ACETAMINOPHEN 325 MG TAB PO (16:01)
[2018-05-18] MEDS: ATORVASTATIN 40 MG TAB PO (20:30)
[2018-05-18] MEDS: SENNA TAB PO (20:30)
[2018-05-18] MEDS: INSULIN GLARGINE [LANTus] (100 UNITS/ML) SYG SC (20:41)
[2018-05-19] MEDS: ACCUCHECK AT 2AM (Patients on SS coverage) XX (02:20)
[2018-05-19] MEDS: Insulin NOVOLOG SS MODERATE Algorithm (SS with meals and bedtime) SC ×4 (07:35→20:54)
[2018-05-19] MEDS: metFORMIN 500 MG TAB PO (08:06)
[2018-05-19] MEDS: ASPIRIN (EC) 81 MG TAB PO (08:58)
[2018-05-19] MEDS: FAMOTIDINE 20 MG TAB PO ×2 (08:58→20:55)
[2018-05-19] MEDS: DOCUSATE SODIUM 100 MG CAP PO ×2 (09:00→20:55)
[2018-05-19] MEDS: BISACODYL (EC) 5 MG TAB PO (09:00)
[2018-05-19] MEDS: LINAGLIPTIN 5 MG TABLET PO (09:02)
[2018-05-19] MEDS: CARBIDOPA/LEVODOPA (25/100) TAB PO ×3 (09:02→20:55)
[2018-05-19] MEDS: INSULIN GLARGINE [LANTus] (100 UNITS/ML) SYG SC (20:53)
[2018-05-19] MEDS: SENNA TAB PO (20:54)
[2018-05-19] MEDS: ATORVASTATIN 40 MG TAB PO (20:54)
[2018-05-20] MEDS: ACCUCHECK AT 2AM (Patients on SS coverage) XX (02:37)
[2018-05-20] MEDS: Insulin NOVOLOG SS MODERATE Algorithm (SS with meals and bedtime) SC ×4 (07:35→21:00)
[2018-05-20] MEDS: LINAGLIPTIN 5 MG TABLET PO (07:50)
[2018-05-20] MEDS: metFORMIN 500 MG TAB PO (07:50)
[2018-05-20] MEDS: FAMOTIDINE 20 MG TAB PO ×2 (08:29→21:21)
[2018-05-20] MEDS: ASPIRIN (EC) 81 MG TAB PO (08:29)
[2018-05-20] MEDS: CARBIDOPA/LEVODOPA (25/100) TAB PO ×4 (08:29→23:30)
[2018-05-20] MEDS: DOCUSATE SODIUM 100 MG CAP PO ×2 (08:29→21:00)
[2018-05-20] MEDS: INSULIN GLARGINE [LANTus] (100 UNITS/ML) SYG SC (20:07)
[2018-05-20] MEDS: SENNA TAB PO (21:00)
[2018-05-20] MEDS: ATORVASTATIN 40 MG TAB PO (21:21)
[2018-05-21] MEDS: ACCUCHECK AT 2AM (Patients on SS coverage) XX (02:00)
[2018-05-21] MEDS: Insulin NOVOLOG SS MODERATE Algorithm (SS with meals and bedtime) SC ×4 (07:35→21:00)
[2018-05-21] MEDS: metFORMIN 500 MG TAB PO (07:51)
[2018-05-21] MEDS: LINAGLIPTIN 5 MG TABLET PO (07:59)
[2018-05-21] MEDS: DOCUSATE SODIUM 100 MG CAP PO ×2 (08:36→21:31)
[2018-05-21] MEDS: ASPIRIN (EC) 81 MG TAB PO (08:36)
[2018-05-21] MEDS: FAMOTIDINE 20 MG TAB PO ×2 (08:36→21:31)
[2018-05-21] MEDS: CARBIDOPA/LEVODOPA (25/100) TAB PO ×3 (08:37→21:31)
[2018-05-21] MEDS: ATORVASTATIN 40 MG TAB PO (21:31)
[2018-05-21] MEDS: INSULIN GLARGINE [LANTus] (100 UNITS/ML) SYG SC (21:45)
[2018-05-21] MEDS: SENNA TAB PO (21:48)
[2018-05-22] MEDS: ACCUCHECK AT 2AM (Patients on SS coverage) XX (02:00)
[2018-05-22] MEDS: Insulin NOVOLOG SS MODERATE Algorithm (SS with meals and bedtime) SC ×4 (07:35→20:21)
[2018-05-22] MEDS: LINAGLIPTIN 5 MG TABLET PO (08:14)
[2018-05-22] MEDS: FAMOTIDINE 20 MG TAB PO ×2 (08:14→20:15)
[2018-05-22] MEDS: CARBIDOPA/LEVODOPA (25/100) TAB PO ×3 (08:14→20:15)
[2018-05-22] MEDS: ASPIRIN (EC) 81 MG TAB PO (08:14)
[2018-05-22] MEDS: metFORMIN 500 MG TAB PO (08:14)
[2018-05-22] MEDS: DOCUSATE SODIUM 100 MG CAP PO ×2 (08:18→20:15)
[2018-05-22] MEDS: SENNA TAB PO (20:15)
[2018-05-22] MEDS: ATORVASTATIN 40 MG TAB PO (20:15)
[2018-05-22] MEDS: INSULIN GLARGINE [LANTus] (100 UNITS/ML) SYG SC (20:17)
[2018-05-23] MEDS: ACCUCHECK AT 2AM (Patients on SS coverage) XX (02:00)
[2018-05-23] MEDS: Insulin NOVOLOG SS MODERATE Algorithm (SS with meals and bedtime) SC ×4 (07:35→20:13)
[2018-05-23] MEDS: DOCUSATE SODIUM 100 MG CAP PO ×2 (08:27→20:12)
[2018-05-23] MEDS: FAMOTIDINE 20 MG TAB PO ×2 (08:27→20:12)
[2018-05-23] MEDS: ASPIRIN (EC) 81 MG TAB PO (08:28)
[2018-05-23] MEDS: CELECOXIB 100 MG CAP PO (08:28)
[2018-05-23] MEDS: LINAGLIPTIN 5 MG TABLET PO (08:28)
[2018-05-23] MEDS: CARBIDOPA/LEVODOPA (25/100) TAB PO ×3 (08:28→20:12)
[2018-05-23] MEDS: metFORMIN 500 MG TAB PO ×2 (08:28→17:29)
[2018-05-23] MEDS: LACTULOSE 30ML CUP PO (17:58)
[2018-05-23] MEDS: ATORVASTATIN 40 MG TAB PO (20:12)
[2018-05-23] MEDS: SENNA TAB PO (20:12)
[2018-05-24] MEDS: ACCUCHECK AT 2AM (Patients on SS coverage) XX (02:00)
[2018-05-24] MEDS: Insulin NOVOLOG SS MODERATE Algorithm (SS with meals and bedtime) SC (07:35)
[2018-05-24] MEDS: metFORMIN 500 MG TAB PO (08:04)
[2018-05-24] MEDS: CARBIDOPA/LEVODOPA (25/100) TAB PO (08:17)
[2018-05-24] MEDS: ASPIRIN (EC) 81 MG TAB PO (08:17)
[2018-05-24] MEDS: FAMOTIDINE 20 MG TAB PO (08:18)
[2018-05-24] MEDS: LINAGLIPTIN 5 MG TABLET PO (08:21)
[2018-05-24] MEDS: DOCUSATE SODIUM 100 MG CAP PO (08:21)
== END 2018-05-24 11:30 | disposition home health service (06) | DRG 57 ==
LOC: VRC 21:02
PROC: F07Z5ZZ Bed Mobility Treatment (ICD-10-PCS; principal; 2018-05-03)
PROC: F07Z8ZZ Transfer Training Treatment (ICD-10-PCS; 2018-05-03)
PROC: F07Z9ZZ Gait Training/Functional Ambulation Treatment (ICD-10-PCS; 2018-05-03)
PROC: F08Z2ZZ Grooming/Personal Hygiene Treatment (ICD-10-PCS; 2018-05-03)
PROC: F08Z1ZZ Dressing Techniques Treatment (ICD-10-PCS; 2018-05-03)
PROC: F08Z0ZZ Bathing/Showering Techniques Treatment (ICD-10-PCS; 2018-05-03)
DX: I69.351 Hemiplegia and hemiparesis following cerebral infarction affecting right dominant side (principal); G93.49 Other encephalopathy; N39.0 Urinary tract infection, site not specified; R13.10 Dysphagia, unspecified; E11.9 Type 2 diabetes mellitus without complications; E78.5 Hyperlipidemia, unspecified; F06.31 Mood disorder due to known physiological condition with depressive features; F01.50 Vascular dementia, unspecified severity, without behavioral disturbance, psychotic disturbance, mood disturbance, and anxiety; G20 Parkinson's disease; I25.10 Atherosclerotic heart disease of native coronary artery without angina pectoris; I65.23 Occlusion and stenosis of bilateral carotid arteries; I69.391 Dysphagia following cerebral infarction; Z74.09 Other reduced mobility; Z79.4 Long term (current) use of insulin
CPT/HCPCS: 80048; 81001; 82962; 85025; 87081; 87086; 92507; 92523; 92526; 92610; 97110; 97112; 97116; 97163; 97167; 97530; 97535; 97542